=== PATIENT | male | born 1975 | race Hispanic/Latino ===

== ENCOUNTER 2018-03-31 19:15 | Emergency (ER) | payer SELFPAY ==
[2018-03-31 19:55] LABS: #Lymphocytes 1.9 thou/uL (1.20-3.40); #Monocytes 0.3 thou/uL (0.11-0.59); #Neutrophils 10.4 thou/uL (1.40-6.50); %Eosinophils 0.2 % (0.0-10.0); %Lymphocytes 14.9 % (21.0-51.0); Hemoglobin 17.4 g/dL (14.0-18.0); Mean Corpuscular HGB CONC 35.1 g/dL (32.0-36.0); Mean Corpuscular Hemoglobin 32.4 pg (27.0-31.0); Mean Corpuscular Volume 92.3 fL (78.0-98.0); Mean Platelet Volume 9.3 fL (7.4-10.4); Platelet Count 234 thou/uL (130-400); RBC Distribution Width 11.7 % (11.5-14.5); Red Blood Cell (RBC) Count 5.37 mill/uL (4.70-6.10); White Blood Cell (WBC) Count 12.6 thou/uL (4.8-10.8)
[2018-03-31 20:16] LABS: ALT (SGPT) 46 U/L (8-55); AST (SGOT) 28 U/L (5-34); Albumin 4.6 g/dL (3.5-5.0); Alkaline Phosphatase 59 U/L (40-150); Anion Gap 18 mmol/L (10-20); BUN (Urea Nitrogen) 16 mg/dL (8.9-20.6); Bilirubin, Total 0.7 mg/dL (0.2-1.2); Calc. Creatinine Clearance 0 mL/min (70-130); Calcium 9.9 mg/dL (7.8-10.44); Carbon Dioxide 21 mmol/L (22-29); Chloride 99 mmol/L (98-107); Estimated GFR-MDRD Greater than 90; Globulin 3.9 g/dL (2.4-3.5); Glucose 293 mg/dL (70-105); Lipase 16 U/L (8-78); Potassium 3.9 mmol/L (3.5-5.1); Protein, Total 8.5 g/dL (6.0-8.3); Sodium 134 mmol/L (136-145)
== END 2018-04-01 00:10 | disposition home or self-care (01) ==
LOC: ERS 19:15
DX: E11.65 Type 2 diabetes mellitus with hyperglycemia (principal); E11.10 Type 2 diabetes mellitus with ketoacidosis without coma; Z91.11 Patient's noncompliance with dietary regimen; I10 Essential (primary) hypertension; Z79.84 Long term (current) use of oral hypoglycemic drugs; Z79.899 Other long term (current) drug therapy
CPT/HCPCS: 36416; 80053; 82010; 83690; 85025; 96360

== ENCOUNTER 2025-02-05 08:09 | Outpatient (CLI) | payer OTHER ==
[2025-02-05] MEDS ORDERED: Iopamidol 370 76% 100 ML VIAL ONE (09:54)
== END 2025-02-05 08:10 | disposition home or self-care (01) ==
LOC: CT 08:09
PROVIDERS: ATTEND Internal Medicine Hematology & Oncology
DX: C49.A3 Gastrointestinal stromal tumor of small intestine (principal); D50.0 Iron deficiency anemia secondary to blood loss (chronic)
CPT/HCPCS: 71260; 74177; Q9967

== ENCOUNTER 2025-05-10 13:06 | Outpatient (CLI) | payer OTHER ==
[2025-05-10] MEDS ORDERED: Iopamidol 370 76% 100 ML VIAL ONE (14:47)
== END 2025-05-10 13:07 | disposition home or self-care (01) ==
LOC: CT 13:06
PROVIDERS: ATTEND Internal Medicine Hematology & Oncology
DX: C49.A3 Gastrointestinal stromal tumor of small intestine (principal); D50.0 Iron deficiency anemia secondary to blood loss (chronic); R91.8 Other nonspecific abnormal finding of lung field
CPT/HCPCS: 71260; 74177